=== PATIENT | male | born 1980 | race Two or more races ===

== ENCOUNTER 2022-07-12 21:15 | Emergency (ER) | payer OTHER ==
[~2022-07-12] VITALS: Ht 175.3 cm; Wt 123.9 kg
[2022-07-12 22:45] VITALS: BP 153/107
[2022-07-12 23:41] LABS: Urine Bacteria NONE SEEN /hpf (None Seen); Urine Blood Negative /uL (Negative); Urine Mucus FEW (None Seen); Urine Specific Gravity 1.022 (1.001-1.035); Urine WBC 2 /hpf (0 - 3)
[2022-07-13] MEDS ORDERED: PENICILLIN G BENZ 1200000 UNITS/2 ML SYRG IM ONE (00:30)
[2022-07-13] MEDS ORDERED: DOXY-338 PO (00:36)
[2022-07-13] MEDS ORDERED: cefTRIAXone SODIUM 250 MG VL IM ONE (00:45)
[2022-07-14 07:06] LABS: RPR Non Reactive (Non Reactive)
== END 2022-07-13 00:57 | disposition home or self-care (01) ==
LOC: ER 21:15
DX: N48.5 Ulcer of penis (principal); F17.210 Nicotine dependence, cigarettes, uncomplicated
CPT/HCPCS: 73120; 81001; 86592; 87491; 87591; 96372; 99284; J0561; J0696